=== PATIENT | male | born 1965 | race Caucasian/White ===

== ENCOUNTER 2018-07-27 12:20 | Emergency (ER) | payer OTHER ==
[2018-07-27] MEDS ORDERED: LIDOCAINE 4%/MENTHOL 1% PATCH TD ONE (13:19)
[2018-07-27] MEDS ORDERED: ACETAMINOPHEN 500 MG TAB PO ONE (13:19)
--- NOTE | 2018-07-27 15:12 | EDPHY ---
General Time Seen by Provider: 07/27/18 12:45 Narrative: CLINICAL IMPRESSION: Lumbar back pain ASSESSMENT/PLAN: Patient is a 53 year old male with a history of remote back injury who presents with a complaint of low back pain after lifting and moving a heavy object yesterday. Patient is afebrile and not toxic appearing, he is in no acute distress on arrival. HSNE intact with no significant red flags. Lumbar spine xray today with Grade 1 L5-S1 spondylolisthesis and DDD L3-5. Physical examination today is consistent with acute on chronic lumbar back pain ; negative straight leg raise, no evidence of radicular symptoms. He had no saddle paresthesias, lower extremity numbness, tingling, major motor weakness, urinary retention or bowel/bladder incontinence. No indication for emergent MRI. There were no clinical findings to suggest vertebral osteomyelitis, acute fracture, cauda equina syndrome, epidural abscess/hematoma, epidural compression syndrome, AAA, dissection, malignancy, transverse myelitis, herpes zoster, or additional emergent intraabdominal infectious/obstructive process. Patient was given single dose of tylenol and a lidoderm patch was placed while in the ED with improvement of his pain. He will continue lidoderm patch and ibuprofen at home. He is well established with his PCP and will call to schedule a follow-up appointment. The patient expresses concern that this is likely related to remote work injury, I have advised him to follow-up with human resources/work comp as well. Strict return precautions discussed- he will return for increased or unmanageable pain, new injury, new midline back pain, numbness, tingling, weakness of legs, loss of bowel or bladder control, saddle paresthesia, urinary retention, loss of bowel or bladder control, difficulty walking or for any other new, worsening or worrisome symptoms. Patient verbalizes understanding and he is in agreement with plan. DIFFERENTIAL DX: Back pain including but not limited to muscular pain, herniated disc, spine fracture, intra-abdominal causes and urinary tract infection. ED COURSE: 1330: Case and plan of care discussed with Dr. Butler 1509: Results discussed with Dr. Butler, we reviewed the xray results together and felt no need for additional imaging at this time based on grossly normal neurologic exam. Just prior to discharge the patient asked to speak with me again. He expresses concern as he reportedly called his PCP for an appointment for this complaint and his PCP reportedly declined seeing him as this may be work comp related. I explained again importance of speaking with his human resources. CHIEF COMPLAINT: Lumbar back pain HPI: Patient is a 53 year old male who presents to the emergency department with complaints of acute on chronic lumbar back pain. Patient originally states a work injury that occurred in 2016 but then believes it was November of last year, was lifting heavy boxes when he experienced low back pain. No formal imaging or reported evaluation was done at that time. Since that injury he has intermittent pain in the same location which he feels has been escalating over the last several months. He tried to see his PCP but reportedly would not see him with work comp potential. Last evening he was up during the night with more pain than normal, intermittent radiation down outer right leg, denies any today. He woke up this morning and stretched, used his foam roller with improvement of his pain however wished for formal evaluation. He denies any trauma or falls. He does lift boxes regularly, last yesterday. He denies fever , CP, SOB, abdominal pain or any urinary symptoms. Patient denies saddle paresthesias, lower extremity numbness, tingling, major motor weakness, urinary retention or bowel/bladder incontinence. PMH: Chronic lumbar back pain Pertinent Past Surgical History: Denies Family History: Noncontributory Social History: Denies REVIEW OF SYSTEMS: All other systems negative Constitutional: No fever, no chills, appetite change. Eyes: No discharge, vision change. ENT: No sore throat, congestion, ear pain. Cardiovascular: No chest pain, no palpitations. Respiratory: No cough, no shortness of breath. Gastrointestinal: No abdominal pain, no vomiting, diarrhea. Genitourinary: No hematuria, dysuria, flank pain, pelvic pain. Musculoskeletal: Back pain. No joint swelling, joint pain, myalgias. Skin: No rashes, color change. Neurological: No headache, dizziness, weakness. PHYSICAL EXAM: General Appearance: Well appearing, walking around room, no acute distress. HENT: Normocephalic, atraumatic. Bilateral external ears are normal. Bilateral tympanic membranes are normal with pearly chauhan reflex. Nares are clear, mucosa is pink. Oropharynx is clear, uvula is midline. There is no tonsillar enlargement or exudate. The dentition is normal. Eyes: PERRLA, no acute vision change, nystagmus, swelling, discharge, pain or photosensitivity. Conjunctiva pink, no pallor or injection. Neck: Supple, nontender, no lymphadenopathy, no midline pain, FROM, no meningismus. Respiratory: There are no retractions, lungs are clear to auscultation. Cardiac: Regular rate and rhythm, no murmurs or gallops. Gastrointestinal: Abdomen is soft, nontender, bowel sounds normal, no masses/ hernia, no rigidity, guarding or focal peritoneal findings. Neurological: Alert and oriented x 3, CN 2-12 grossly intact, normal gait no ataxia, DTR's intact, normal sensation and strength. Back: No step-off, palpable bony abnormality, edema, erythema or ecchymosis of the cervical, thoracic or lumbar spines. Midline lumbar spine and bilateral SI joints tender to palpation. Limited ROM of lumbar spine due to pain. 5/5 and equal strength of the UEs and LEs bilaterally including shoulder shrug. Pulses: 2+ and equal radial, DP and PT pulses bilaterally. Sensation intact and symmetric to light touch from face, UEs and LEs bilaterally. Straight leg raise negative bilaterally. Back Pain Pathway Low/medium concern for Acute Spinal Emergency (ASE) High Sensitivity Neuro Exam (HSNE) Lumbar pain L1: inner thigh sensation- no deficit L2: ADduct thigh (cross legs) -no deficit L3: Extend knee- no deficit L4: Ankle dorsiflexion- no deficit L5: Great toe extension- no deficit S1: Flex knee- no deficit S3-4: bladder/bowel function no dysfunction HSNE no deficit Red flags: MINOR (1 pt each) Alcohol abuse no DM no Renal failure no Night pain yes 3rd visit in <= 20 days no MAJOR (3 pts each) IVDA no Fever without focus no Recent/current systemic infection no Immunosuppression (physician discretion) no Recent spinal fracture/spinal procedure (ESR is not a good screen for spinal epidural hematoma) no New bladder/bowel incontinence or retention no Total Red Flag score 1 Total Red Flag score <= 3 AND neuro exam is at baseline ---> no MRI is recommended Skin: Warm, dry, no rashes, no nodules on palpation. Musculoskeletal: Extremities are symmetrical, full range of motion, no tenderness, deformity, swelling, or erythema. Psychiatric: Patient is oriented X 3, there is no agitation. MEDICAL DECISION MAKING: Patient was seen independently. Secondary supervising physician at timeof evaluation was Dr. Butler, he did not personally evaluate this patient. Diagnosis: Lumbar back pain. New, requires workup Summary: See Assessment and Plan for summary of ED visit Clinical lab tests: Not applicable. Independent visualization of images, tracing, or specimens: Yes. Decision to obtain medical records or history from someone other than the patient: No Review / Summarize previous medical records: No Discussed patient with another provider: Yes, Dr. Butler and Dr. Ochoa Patient Progress: Stable, discharged. - History Smoking Status: Never smoked - Objective Vital Signs: Initial Vital Signs Temperature (C) 36.7 C 07/27/18 12:24 Heart Rate 70 07/27/18 12:24 Respiratory Rate 16 07/27/18 12:24 Blood Pressure 136/86 H 07/27/18 12:24 O2 Sat (%) 95 07/27/18 12:24 O2 Delivery Mode Room Air Allergies/Adverse Reactions: No Known Allergies Allergy (Verified 07/27/18 12:24) Home Medications: Medication Instructions Recorded Clonazepam 02/10/13 Lexapro 02/10/13 Flexeril 10 MG (*) 07/27/18 Medications Given: Discontinued Medications Acetaminophen (Tylenol) 1,000 mg PO EDNOW ONE Stop: 07/27/18 13:20 Last Admin: 07/27/18 13:27 Dose: 1,000 mg Miscellaneous Medication (Icy Hot Lidocaine/Menthol 4%/1% Patch) 1 patch TD EDNOW ONE Stop: 07/27/18 13:20 Last Admin: 07/27/18 13:27 Dose: 1 patch Departure - Departure Disposition: Home, Routine, Self-Care Clinical Impression: Back pain Condition: Good Instructions: Back Pain (ED) Additional Instructions: DISCHARGE INSTRUCTIONS FROM YOUR DOCTOR Thank you for visiting our emergency department today. Please keep in mind that discharge from the emergency department does not mean that there is nothing wrong - it simply means that we have not identified an emergency condition that requires further evaluation or treatment in the hospital. You should always plan to follow up with primary care for re-evaluation of your condition in the next 2-3 days; please call your human resources for the potential of this being a work comp injury. Most back pain improves quickly with rest and anti-inflammatory medicines. The majority of back pain will improve regardless of treatment within 4-6 weeks. Regardless, I recommend you follow up with primary care for recheck as soon as possible. Additional evaluation as an outpatient may be needed, and further therapeutic modalities such as chiropractic or PT may be helpful. Rest. Avoid lifting greater than 10-15 pounds. Avoid twisting or prolonged sitting. Movement and gentle walking is good for your back. Try to walk for 15-10 minutes on an even surface 3 or 4 times a day as tolerated and increase gentle exercise as your back improves. Apply ice to your low back during acute pain phase, later a heating pad set to a low setting or hot tub may be helpful to help relax muscles. For pain control: You may take Tylenol, I recommend 500-1000 mg every 6-8 hours as needed. Take with food and a full glass of water. Stop taking if this is upsetting her stomach. Do not exceed 4000 mg in a 24 hr period. You may also take ibuprofen, recommend 400 mg every 6 hr. Take with food and a full glass of water. Stop taking if this upsets her stomach. Do not exceed 2400 mg in a 24 hr period. Schedule a follow-up appointment with your primary care physician in the next 2- 3 days for re-evaluation. You may require further treatment, physical therapy and/or further future testing. Salonpas pain patch, you may purchase [id number] at your pharmacy. Follow the instructions on the packaging. Please remove the 1 that was applied in the emergency department after 12 hr. Return for increased or unmanageable pain, new injury, new midline back pain, numbness, tingling, weakness of your legs, loss of bowel or bladder control, inability to urinate, burning or pain with urination, blood in the urine, fever , chills, abdominal pain, vomiting, difficulty walking, dizziness, fainting, chest pain, shortness of breath, neck pain, neck stiffness, other site of back pain, calf pain, leg redness or swelling, or for any other new, worsening or worrisome symptoms. People present with illnesses and injuries in different ways, and it is always possible that we have missed something. You may always return for re-evaluation if symptoms worsen or if they are not improving or if you develop new/different symptoms. Again, thank you for choosing our emergency department. We hope that you feel better. Referrals: MAYKEL MARTIN [Primary Care Provider] - 1-2 days without fail
[2018-07-27 15:36] VITALS: BP 122/96
[2018-07-27] MEDS ORDERED: PATCH REMOVAL 1 EA PATCH TD SCH (21:00)
== END 2018-07-27 15:50 | disposition home or self-care (01) ==
DX: M54.5 Low back pain (principal)